=== PATIENT | female | born 1960 | race Caucasian/White ===

== ENCOUNTER → 2017-05-09 | Outpatient (CLI) | payer OTHER ==
[~2017-05-09] MED LIST: ACIPHEX20 MG PO; AMBIEN PO; CLARITIN10 MG PO; DESYREL50 MG; DULERA 100 MCG/13 GM INH; FUROSEMIDE40 MG PO; GLUCOPHAGE500 MG PO; HYDROXYZINE HCL50 MG PO; K-DUR20 ME1; LANTUS SOLOSTAR3 ML; LISINOPRIL; LISINOPRIL10 MG PO; METFORMIN; OMEPRAZOLE40 M1 PO; ORUDIS75 M1 PO; POTASSIUM CHLO10 ME1; PRILOSEC40 MG PO; SULFAMETHOXAZOL1 TA4 PO; TYLENOL #3 PO; ZANAFLEX4 M1 PO; ZYRTEC10 M2 PO
--- NOTE | ~2017-05-09 | EKG ---
PATIENT: BAKARI WAGNER UNIT #: [id number] Ventricular Rate: 93 BPM Atrial Rate: 93 BPM P-R Interval: 126 ms QRS Duration: 70 ms Q-T Interval: 348 ms QTC Calculation(Bezet): 432 ms P [place]: 30 degrees Calculated R [place]: -13 degrees Calculated T [place]: 31 degrees Diagnosis Line: Normal sinus rhythm Diagnosis Line: Low voltage QRS Diagnosis Line: Poor R wave progression questionable lead position Diagnosis Line: or body habitus Diagnosis Line: Abnormal ECG Diagnosis Line: When compared with ECG of 28-FEB-2016 21:54, Diagnosis Line: No significant change was found Diagnosis Line: Confirmed by JAYDA STAFFORD MD ([id number]) on Diagnosis Line: 05/12/2017 4:39:49 PM INTERPRETING MD: CODEY
--- NOTE | ~2017-05-09 | CR63 ---
[facility] A Service of [facility] RADIOLOGY TEXT RESULTS PATIENT: BAKARI WAGNER LOCATION: [facility] [place] : 64 UNIT #: [id number] AGE: [address]: Oscar Handy MD SEX: F ORDER DR: [id number] [facility] [address] [place], [place] [address] [id number] O MR#: [id number] Acc #: [id number] NAME: BAKARI WAGNER : 1960 SEX: F STUDY DATE/TIME: 05/09/2017 17:30 UNIT: [facility] ROOM: STUDY DESCRIPTION: CR Chest 2 View Attending Physician: Oscar Handy M.D. Referring Physician: Oscar Handy M.D. Ordering Physician: Oscar Handy M.D. Primary Care Physician: Brandon Balderas M.D. MEDICAL IMAGING REPORT This report is preliminary unless electronic signature is present EXAM PA and lateral chest radiograph. INDICATIONS Preoperative examination prior to the left humerus surgery. FINDINGS Heart size appears to be within normal limits. No pneumothorax, pleural effusion or definite acute infiltrate is seen. Patient does appear to have some bibasilar atelectasis. There is an essentially transversely oriented fracture of the mid left humerus which is better seen on dedicated radiographs of the left arm. IMPRESSION 1. Mild bibasilar atelectasis. 2. Fracture of the midshaft left humerus better seen on dedicated radiographs of the left humerus. Dictated by... Tuyet Brooks M.D. THIS IS AN ELECTRONICALLY VERIFIED REPORT Tuyet Brooks M.D. at 05/21/2017 8:24 AM CAREY/colette TD: 05/10/2017 21:28 JOB #: [id number] MEDICAL IMAGING REPORT Page 1 of 1 COPY
--- NOTE | ~2017-05-09 | CR156 ---
[facility] A Service of [facility] RADIOLOGY TEXT RESULTS PATIENT: BAKARI WAGNER [place] [facility] [place] 64 UNIT #: [id number] AGE: [address]: Oscar Handy MD SEX: F ORDER DR: [id number] [facility] [address] [place], [place] [address] [id number] O MR#: [id number] Acc #: [id number] NAME: BAKARI WAGNER : 1960 SEX: F STUDY DATE/TIME: 05/09/2017 17:27 [place]: [facility] [place]OM: STUDY DESCRIPTION: CR Humerus Min 2 View Lt Attending Physician: Oscar Handy M.D. Referring Physician: Oscar Handy M.D. Ordering Physician: Oscar Handy M.D. Primary Care Physician: Brandon Balderas M.D. MEDICAL IMAGING REPORT This report is preliminary unless electronic signature is present EXAM Left humerus. HISTORY Patient fell last Friday. Humeral fracture. Presurgical evaluation for open reduction internal fixation. TECHNIQUE Two views of the humerus were obtained. FINDINGS There is a transverse mid humeral shaft fracture. There is no significant angulation seen. There is approximately one-half shafts width displacement with the distal aspect lateral to the proximal aspect. No radiodense foreign bodies are seen. IMPRESSION Nonangulated moderately displaced transverse fracture of the mid humeral shaft. One-half shafts width displacement. Dictated by... Carroll Melo M.D. THIS IS AN ELECTRONICALLY VERIFIED REPORT Carroll Melo M.D. at 05/12/2017 7:12 AM ERNIE/colette TD: 05/10/2017 21:17 JOB #: [id number] MEDICAL IMAGING REPORT Page 1 of 1 COPY
[2017-05-09 16:54] LABS: HEMATOCRIT 32.9 % (35.0-45.0); HEMOGLOBIN 11.1 gm/dL (12.0-16.0); MEAN CELL VOLUME 84.7 FL (83-96); MEAN CORPUSCULAR HEMOGLOBIN 28.7 PG (28-34); MEAN CORPUSCULAR HGB CONC 33.8 g/dL (30-36); MEAN PLATELET VOLUME 7.9 FL (6.5-11.5); RED BLOOD COUNT 3.89 X10e (3.90-5.30); RED CELL DISTRIBUTION WIDTH 15.9 % (11.0-15.5)
[2017-05-09 17:02] LABS: URINE APPEARANCE CLEAR; URINE BILIRUBIN NEG (NEG); URINE BLOOD NEG (NEG); URINE COLOR YELLOW; URINE GLUCOSE NEG (NEG); URINE KETONE NEG (NEG); URINE LEUKOCYTE ESTERASE 2+ (NEG); URINE NITRATE POS (NEG); URINE PROTEIN NEG (NEG); URINE SPECIFIC GRAVITY 1.015 (1.003-1.035); URINE UROBILINOGEN 0.2 MG/DL (NEG)
[2017-05-09 17:04] LABS: URBCS1 AUWI 0-2 /[HPF] (0-2); URINE BACTERIA AUWI 4+ (NEGATIVE); URINE SQUAMOUS EPITHELIAL CELL NONE SEEN /[HPF]
[2017-05-09 17:05] LABS: URINE SOURCE CLEAN CATCH
[2017-05-09 17:15] LABS: BUN/CREATININE RATIO 33.75; CALCIUM SERUM 8.9 mg/dL (8.4-10.2); CREATININE SERUM 0.8 mg/dL (0.6-1.4); GLOM FILT RATE Estimated 83.7 mL/min (>60); POTASSIUM 4.8 mmol/L (3.5-5.1)
== END | disposition home or self-care (01) ==
LOC: CEKG 16:15
PROVIDERS: Orthopaedic Surgery
DX: Z01.818 Encounter for other preprocedural examination (principal); S42.302A Unspecified fracture of shaft of humerus, left arm, initial encounter for closed fracture; S42.322A Displaced transverse fracture of shaft of humerus, left arm, initial encounter for closed fracture; J98.11 Atelectasis
CPT/HCPCS: 36415; 71020; 73060; 80048; 81003; 85027; 93005